=== PATIENT | male | born 1950 | race Caucasian/White ===

== ENCOUNTER 2020-11-15 08:18 | Outpatient (CLI) | payer MEDICARE, SELFPAY ==
[2020-11-15 08:31] LABS: Add Urine Microscopic? NO; Appearance Urine Clear (Clear); Basophils Absolute Auto 0.03 K/mm3 (0.00-0.10); Basophils Percent Auto 0.4 % (0.0-1.0); Bilirubin Urine Negative (Negative); Blood Urine Negative (Negative); Color Urine Yellow (Yellow); Glucose Urine UA Negative (Negative); Hematocrit 47.2 % (37.0-46.0); Hemoglobin 16.1 g/dL (12.4-15.3); Immature Granulocyte Absolute 0.03 K/mm3 (0.00-0.00); Immature Granulocyte Percent A 0.4 % (0.0-0.0); Ketones Urine Negative (Negative); Leukocyte Esterase Ur Negative LEU/UL (Negative); Lymphocytes Absolute Auto 2.54 K/mm3 (1.10-4.50); Lymphocytes Percent Auto 37.9 % (18.0-42.0); Mean Corpuscular HGB Conc 34.1 g/dL (32.0-36.0); Mean Corpuscular Hemoglobin 32.3 pg (27.0-31.0); Mean Corpuscular Volume 94.8 fL (78.0-102.0); Mean Platelet Volume 10.7 fl (8.7-11.0); Monocytes Absolute Auto 0.67 K/mm3 (0.10-0.90); Neutrophils Absolute Auto 3.2 K/mm3 (1.7-7.2); Neutrophils Percent Auto 48.3 % (50.0-70.0); Nitrate Urine Negative (Negative); Platelet Count Result 157 K/mm3 (150-420); Protein Urine Negative (Negative); Red Blood Count 4.98 M/mm3 (4.70-6.10); Red Cell Distribution Width 12.2 % (11.6-14.4); Specific Grav Ur 1.025 (1.010-1.020); Urobilinogen Urine 0.2 mg/dL (0.2-1.0); White Blood Count 6.7 K/mm3 (4.8-10.8)
[2020-11-15 09:49] LABS: Alanine Aminotransferase 30 U/L (16-63); Alkaline Phosphatase 73 U/L (46-116); Anion Gap 5 mmol/L (8-16); Aspartate Amino Transferase 19 U/L (15-37); Bilirubin,Total 0.7 mg/dL (0.00-1.00); Blood Urea Nitrogen 22 mg/dL (7-18); Calcium 9.2 mg/dL (8.5-10.1); Carbon Dioxide 33 mmol/L (21-32); Chloride 102 mmol/L (98-108); Cholesterol 208 mg/dL (0-200); Estimated Glomerular Filt Rate > 60; Glucose 86 mg/dL (70-99); HDL Direct 54 mg/dL (40-60); LDL Cholesterol Calculated 136 mg/dL (<130); Osmolality Calculated 292 mOsm/kg (285-295); Prostate Specific Antigen 2.4 ng/mL (< OR = 4.0); Sodium 140 mmol/L (136-145); Total Protein 7.2 g/dL (6.4-8.2); Triglycerides 88 mg/dL (0-150)
== END 2020-11-15 08:19 | disposition home or self-care (01) ==
LOC: CHSLAB 08:21
PROVIDERS: PCP Internal Medicine; Visit Provider Internal Medicine
DX: Z12.5 Encounter for screening for malignant neoplasm of prostate (principal); I10 Essential (primary) hypertension
CPT/HCPCS: 36415; 80053; 80061; 81003; 84153; 85025; G0103

== ENCOUNTER 2022-04-04 01:17 | Day surgery (SDC) | payer MEDICARE, SELFPAY ==
[2022-03-22 13:27] VITALS: BMI 27.1
[2022-04-04 09:12] VITALS: BP 141/80; PULSE 66; RESP 18; TEMP 36.2; O2SAT 99
[2022-04-04] MEDS: LACTATED RINGERS 1,000 ML 150 ML IV CONT (09:20)
--- NOTE | 2022-04-04 09:42 | WPDGICN ---
Assessment and Plan Assessment and plan (1) History of colon polyps: Code(s): Z86.010 - Personal history of colonic polyps Status: Acute Assessment and Plan: Patient has a history of colon polyps removed from the colon 2016. Plan is for surveillance colonoscopy at this time. Further recommendations will be given after endoscopy. GI Consult Note Consult date/time: 04/04/22 09:42 HPI: Abebe Trent is a 72 year old male Presents for screening colonoscopy. Patient reports his current weight appetite bowel movements are normal. His last colonoscopy 5 years ago revealed colon polyps. Patient presents today for follow-up examination. He reports his bowel habits are normal. He denies abdominal pain. He has had no bleeding. Family history is noncontributory. Review of Systems Review of Systems: Review of systems noncontributory. [facility] Past Medical History Medical History (Updated 04/04/22 @ 09:43 by Jeremie Lozano MD) Arthritis Cancer Surgical History Surgical History (Updated 11/02/21 @ 09:25 by Roberto Olvera MD) History of hip surgery Left [place] 2011 Family History Family History Other Diabetes mellitus Heart disease Social History Social History Smoking status: Current every day smoker Tobacco type: cigars Additional smoking assessment comments: 6 cigars a day Alcohol intake: current Drinks per week: 4 Substance use: never Substance use type: does not use Living arrangements: with family Gender identity (if verbalized by the patient): Male Spiritual care concerns: No Meds Home Medications and Allergies Home Medications Medication Instructions Recorded Confirmed Type atenolol 100 mg tablet 100 mg PO DAILY 11/02/21 04/04/22 History lisinopril 10 mg tablet 10 mg PO DAILY 11/02/21 04/04/22 History montelukast 10 mg tablet 10 mg PO DAILY 11/02/21 04/04/22 History Allergies Allergy/AdvReac Type Severity Reaction Status Date / Time No Known Allergies Allergy Verified 04/04/22 09:10 Vital Signs Vital Signs - 24 hr 04/04/22 09:12 Temperature 97.1 F L Pulse Rate 66 Respiratory Rate 18 Blood Pressure 141/80 H Pulse Oximetry 99 Oxygen Delivery Room Air Exam Narrative: Physical exam reveals patient to be alert. Vital signs stable. HEENT exam is unremarkable. Patient is anicteric. Lungs are clear to auscultation and percussion. Heart is without murmur or extra sounds. Abdomen bowel sounds are present soft nontender with no organomegaly. Digital external rectal exam is normal.
--- NOTE | 2022-04-04 09:55 | WPDANESEPPF ---
Anes - Initial Pre Proc Eval Procedure: Operation Date: 04/04/22 10:30 Proposed Procedures p Screening Colonoscopy - Jeremie Lozano MD Date/Time: 04/04/22 09:55 Surgeon: Jeremie Lozano MD Pre Op Diagnosis: hx of colon polyps Patient Data Age: 72 Gender: M Height: 1.83 m Weight: 111.1 kg Last Vital Signs Temp 36.2 C L 04/04/22 09:12 Pulse 66 04/04/22 09:12 Resp 18 04/04/22 09:12 BP 141/80 H 04/04/22 09:12 Pulse Ox 99 04/04/22 09:12 O2 Del Method Room Air 04/04/22 09:12 Allergies Allergy/AdvReac Type Severity Reaction Status Date / Time No Known Allergies Allergy Verified 04/04/22 09:10 Home Medications Medication Instructions Recorded Confirmed Type atenolol 100 mg tablet 100 mg PO DAILY 11/02/21 04/04/22 History lisinopril 10 mg tablet 10 mg PO DAILY 11/02/21 04/04/22 History montelukast 10 mg tablet 10 mg PO DAILY 11/02/21 04/04/22 History Patient hx anesthesia problems: none Family hx anesthesia problems: none Results Review: All pre-operative results and documents have been reviewed as part of the pre-operative evaluation. [facility] Past Medical History Medical History Arthritis Cancer Surgical History Surgical History History of hip surgery Left [place] 2011 Family History Family History Other Diabetes mellitus Heart disease Social History Social History Smoking status: Current every day smoker Tobacco type: cigars Additional smoking assessment comments: 6 cigars a day Alcohol intake: current Drinks per week: 4 Substance use: never Substance use type: does not use Living arrangements: with family Gender identity (if verbalized by the patient): Male Spiritual care concerns: No Anes - Eval Final PreProcedure Day of Procedure 04/04/22 09:55 Patient weight: obese Lungs: clear to auscultation Airway: Mallampati scale class II Neurological: alert and oriented Last oral intake: >/= 8 hours ASA classification: III Emergent: no Anesthetic plan: proceed Anesthesia type and monitoring: general GIVS and standard monitoring Results Review: All pre-operative results and documents have been reviewed as part of the pre-operative evaluation. Informed Consent: The patient's anesthetic plan and its attendant risks and benefits were discussed with the patient/family/POA. Questions were solicited and answers provided to the satisfaction of the patient/family/POA.
[2022-04-04 10:55] VITALS: BP 80/44; PULSE 58; RESP 16; O2SAT 93
[2022-04-04 11:05] VITALS: BP 89/50; PULSE 55; RESP 15; O2SAT 93
[2022-04-04 11:15] VITALS: BP 113/74; PULSE 55; RESP 16; O2SAT 94
== END 2022-04-04 11:22 | disposition home or self-care (01) ==
PROVIDERS: PCP Internal Medicine; Visit Provider Internal Medicine Gastroenterology
PROC: 0DJD8ZZ Inspection of Lower Intestinal Tract, Via Natural or Artificial Opening Endoscopic (ICD-10-PCS; CPT 45378; principal; 2022-04-04 10:30)
DX: Z12.11 Encounter for screening for malignant neoplasm of colon (principal); Z86.010 Personal history of colon polyps; K64.8 Other hemorrhoids; M19.90 Unspecified osteoarthritis, unspecified site; F17.290 Nicotine dependence, other tobacco product, uncomplicated; E66.9 Obesity, unspecified; Z68.33 Body mass index [BMI] 33.0-33.9, adult
CPT/HCPCS: G0105; J2704; J7120

== ENCOUNTER 2025-09-29 14:11 | Outpatient (CLI) | payer MEDICARE, SELFPAY ==
--- NOTE | ~2025-09-29 | XR_ITS ---
EXAMINATION: XR chest 2V, 09/29/2025 14:20 PODIATRY DOCTOR HISTORY: FU ATELCTASIS COMPARISON: No comparisons available. Technique: 2 views obtained. Findings: There is a small left basilar infiltrate and effusion with linear atelectasis. No pneumothorax. Heart is normal size. Mediastinal and hilar contours are within normal limits. Post sternotomy. Impression: Small left lower lobe probable pneumonia. Reviewed, dictated and finalized at location P. ATRY DOCTOR Impression: Small left lower lobe probable pneumonia.
== END 2025-09-29 14:12 | disposition home or self-care (01) ==
PROVIDERS: PCP Internal Medicine; Visit Provider Internal Medicine
DX: J98.11 Atelectasis (principal); R91.8 Other nonspecific abnormal finding of lung field
CPT/HCPCS: 71046

== ENCOUNTER 2025-10-02 13:42 | Outpatient (CLI) | payer MEDICARE, SELFPAY ==
--- NOTE | ~2025-10-02 | CT_ITS ---
EXAMINATION:CT diagnostic chest w con DATE: 10/02/2025 14:42 INDICATION: Pneumonia TECHNIQUE: Computed tomography (CT) of the chest was performed with intravenous contrast. The dose-length product (DLP) was 352.13 mGy-cm. COMPARISON: None. FINDINGS: Mild bibasilar atelectatic appearing changes, left greater than right. There are also some air bronchograms in the left lung base. A small left-sided pleural effusion is present. Mid and upper lung lange are clear. No pneumothorax or suspicious mass. Central and large airways are patent. Heart size normal. No significant pericardial effusion or bulky lymphadenopathy. Sternal retention wires which appear intact. Extensive coronary artery calcification and/or stenting noted. The bones appear intact. No acute process seen in the visualized portions of the upper abdomen or extrathoracic soft tissues. IMPRESSION: Bibasilar changes with more prominent findings in the left lung base where there are some air bronchograms which could represent early pneumonia and/or aspiration. A small effusion is also present. Reviewed, dictated and finalized at location A. RMATION CLERK CASHIER IMPRESSION: Bibasilar changes with more prominent findings in the left lung bas e where there are some air bronchograms which could represent early pneumonia a nd/or aspiration. A small effusion is also present.
--- OUTSIDE RECORDS SUMMARY | 2025-10-02 13:47 | XMS_ITS | Data Portability ---
Author Organization [facility] Address [address] [place] [address] Assessment Encounter Date Assessment Date Assessment LastModified by Organization Details LastModified Time 01/06/2025 01/06/2025 Labs completed on 12/08/2024 Glucose 100, BUN 27, Creatinine 1.04, Sodium 140, Potassium 4.0, Chloride 106, Co2 28.2, Calcium 9.3, Bilirubin 0.4, Proiten 7.5, Albumin 3.6, AST 21, ALT 31, Alkphos 95, eGFR 76, WBC 5.76, hgb 16.1, Platelets 152 ECG performed 12/08/2024 shows sinus rhythm rate 64 beats per minute, incomplete right bundle-branch block otherwise no other significant abnormalities. ECG performed on 01/06/2025 shows sinus rhythm with a rate of 66 beats per minute, incomplete right bundle-branch block. ASSESSMENT Chest pressure he had normal troponins however he had a significant delta started out at 18 and it went up to 73, 2 hours later Incomplete right bundle-branch block Essential hypertension, controlled Allergic rhinitis on montelukast PLAN: In light of his chest pressure symptoms, even though he had a normal troponin I he had a significant delta with his troponin I increasing by 400% 2 hours after his initial troponin so I would recommend we do a cardiac CTA on him and if there is significant disease then we will proceed with cardiac catheterization. Also, I will do a 2D echo Doppler to evaluate LV and valvular function and we will do with agitated saline contrast in light of his incomplete right bundle-branch block to rule out a PFO or ASD.. I asked him in the meantime to quit doing strenuous activity such as his swimming. I would like him to stay on aspirin 81 mg daily and atenolol/chlorth alidone 100/25 mg daily. I will give him sublingual nitroglycerin that he can take on a p.r.n. basis if he were to have chest pain or pressure but I told him if he use it he needs to call 911 and go to the ER. I will get a fasting lipid profile on him. I would like him to return in about 3 weeks' time for re-evaluation. Asked him to return sooner if he has any cardiac issues or problems. I told him to go to the ER if he has recurrence of the chest pressure.. [email or web address] Not available 01/06/2025 10:51:38 Plan of Treatment Reminders Order Date Submit Date Provider Last Modified By Organization Details Last Modified Time Details Appointments None recorde d. Lab lipid panel, serum 2024 [facility] (Lab), [address] [place], [address], 07:34:12 Referral None recorde d. Procedures fractio nal flow reserve (ffr) (PROC) 2024 [facility], [address] [facility], [facility], [place], [address], 07:22:28 Surgeries None recorde d. Imaging electro cardiog giuseppe 2024 [facility] In-Office Order, Internal Use Only DO Not Attach Compendium DO Not Attach Compendium, Do Not Delete/merge, [address] 12:02:47 CT, angiogr am, coronar y arterie s with fractio nal flow reserve 2024 [facility] Radiology Scheduling, [address] [place], [address], 5 07:26:45 US, echocar diogram , transth oracic, bubble study 2024 [facility] Outpatient Services, [address] [facility], [facility] [address], [address], 07:45:09 Medication Orders nitrogl ycerin 0.4 mg subling ual tablet 2024 025 [id number], [address] [facility], [place], [place], [id number], 10:51:52 Patient TargetsNo targets recorded. Patient InstructionsNo instructions recorded. Reason for Referral None Reported. Results Created Date Observation Date Name Description Value Unit Range Abnormal Flag Note LastModifiedBy Organization Detail LastModifiedTime 12/08/1912/08/2024 Compr ehens pham metab olic 1999 panel - Serum or Plasm a glucose [mass/volume ] in serum or plasma 100 text: 70 - 99 mg/dL high GLUCO SE 100 (H) 70 - 99 MG/DL 12/08 7:33 PM CHIEF TECHNOLOGIST [facility] Not Available Not Available 01/06/2025 10:06:57 12/08/19 25 12/08/2024 Compr ehens pham metab olic 1999 panel - Serum or Plasm a urea nitrogen [mass/volume ] in serum or plasma 27 text: 7 - 18 mg/dL high BUN 27 (H) 7 - 18 MG/DL 12/08 7:[address] [facility] Not Available Not Available 01/06/2025 10:06:57 12/08/1912/08/2024 Compr ehens pham metab olic 2000 panel - Serum or Plasm a creatinine [mass/volume ] in serum or plasma 1.04 text: 0.7 - 1.3 mg/dL CREAT ININE S/P/B 1.04 0.7 - 1.3 MG/DL 12/08 7:[address] [facility] Not Available Not Available 01/06/2025 10:06:57 12/08/19 25 12/08/2024 Compr ehens pham metab olic 2000 panel - Serum or Plasm a sodium [moles/volum e] in serum or plasma 140 text: 136 - 145 mmol/L SODHardikU M S/P/B 140 136 - 145 MMOL/ L 12/08 7:33 PM [facility] Not Available Not Available 01/06/2025 10:06:57 12/08/19 25 12/08/2024 Compr ehens pham metab olic 2000 panel - Serum or Plasm a potassium [moles/volum e] in serum or plasma 4 text: 3.5 - 5.1 mmol/L POTAS SIUM S/P/B 4.0 3.5 - 5.1 MMOL/ L 12/08 7:33 PM [facility] Not Available Not Available 01/06/2025 10:06:57 12/08/1912/08/2024 Compr ehens pham metab olic 2000 panel - Serum or Plasm a chloride [moles/volum e] in serum or plasma 106 text: 97 - 115 mmol/L CHLOR XI S/P/B 106 97 - 115 MMOL/ L 12/08 7:33 PM [facility] Not Available Not Available 01/06/2025 10:06:57 12/08/1912/08/2024 Compr ehens pham metab olic 2000 panel - Serum or Plasm a carbon dioxide, total [moles/volum e] in serum or plasma 28.2 text: 21 - 32 mmol/L CO2 28.2 21 - 32 MMOL/ L 12/08 7:33 PM [facility] Not Available Not Available 01/06/2025 10:06:57 12/08/1912/08/2024 Compr ehens pham metab olic 2000 panel - Serum or Plasm a calcium [mass/volume ] in serum or plasma 9.3 text: 8.5 - 10.1 mg/dL CALCI UM S/P/B 9.3 8.5 - 10.1 MG/DL 12/08 7:33 PM [facility] Not Available Not Available 01/06/2025 10:06:57 12/08/19 25 12/08/2024 Compr ehens pham metab olic 1999 panel - Serum or Plasm a bilirubin.to raghu [mass/volume ] in serum or plasma 0.4 text: 0.2 - 1.2 mg/dL BILIR UBIN TOTAL S/P/B 0.4 0.2 - 1.2 MG/DL 12/08 7:[address] [facility] Not Available Not Available 01/06/2025 10:06:57 12/08/19 25 12/08/2024 Compr ens pham metab olic 1999 panel - Serum or Plasm a protein [mass/volume ] in serum or plasma 7.5 text: 6.4 - 8.2 g/dL TOTAL PROTE IN S/P/B 7.5 6.4 - 8.2 G/DL 12/08 7:[address] [facility] Not Available Not Available 01/06/2025 10:06:57 12/08/1912/08/2024 Compr ens pham metab olic 1999 panel - Serum or Plasm a albumin [mass/volume ] in serum or plasma 3.6 text: 3.4 - 5.0 g/dL ALBUM IN S/P/B 3.6 3.4 - 5.0 G/DL 12/08 7:[address] [facility] Not Available Not Available 01/06/2025 10:06:57 12/08/19 25 12/08/2024 Compr ehens pham metab olic 1999 panel - Serum or Plasm a aspartate aminotransfe rase [enzymatic activity/vol ume] in serum or plasma 21 U/L low: 15U/Lh igh: 37U/L AST 21 15 - 37 U/L 12/08 7:[address] [facility] Not Available Not Available 01/06/2025 10:06:57 12/08/19 25 12/08/2024 Compr ehens pham metab olic 2000 panel - Serum or Plasm a alanine aminotransfe rase [enzymatic activity/vol ume] in serum or plasma 31 U/L low: 16U/Lh igh: 60U/L ALT 31 16 - 60 U/L 12/08 7:33 PM [facility] Not Available Not Available 01/06/2025 10:06:57 12/08/19 25 12/08/2024 Compr ehens pham metab olic 2000 panel - Serum or Plasm a alkaline phosphatase [enzymatic activity/vol ume] in serum or plasma 95 U/L low: 50U/Lh igh: 136U/L ALKAL INE PHOSP HATAS E S/P/B 95 50 - 136 U/L 12/08 7:33 PM [facility] Not Available Not Available 01/06/2025 10:06:57 12/08/1912/08/2024 Compr ehens pham metab olic 2000 panel - Serum or Plasm a anion gap in serum or plasma 5.8 text: 2 - 10 mmol/L ANION GAP 5.8 2 - 10 MMOL/ L 12/08 7:33 PM [facility] Not Available Not Available 01/06/2025 10:06:57 12/08/19 25 12/08/2024 Compr ehens pham metab olic 2000 panel - Serum or Plasm a urea nitrogen/cre atinine [mass ratio] in serum or plasma 26 low: 6high: 26 BUN CREAT ININE RATIO 26.0 6 - 26 12/08 7:33 PM [facility] Not Available Not Available 01/06/2025 10:06:57 12/08/19 25 12/08/2024 Compr ehens pham metab olic 2000 panel - Serum or Plasm a albumin/glob ulin [mass ratio] in serum or plasma 0.9 text: 1.0 - 2.0 ratio low A/G RATIO 0.9 (L) 1.0 - 2.0 RATIO 12/08 7:33 PM [facility] Not Available Not Available 01/06/2025 10:06:57 12/08/19 25 12/08/2024 Compr ehens pham metab olic 2000 panel - Serum or Plasm a glomerular filtration rate/1.73 sq M.predicted [volume rate/area] in serum, plasma or blood by creatinine-b ased formula (CKD-epi 2020) 76 text: >90 mL/min /1.73 M2 low GFR ESTIM ATE 76 (L) >90 ML/CA N/1.7 3 M2 12/08 7:33 PM [facility] Not Available Not Available 01/06/2025 10:06:57 12/08/1912/08/2024 Emerson walsh pham metab carol 1999 panel - Serum or Plasm a interpretati on and review of laboratory results Abnorm al Not Available Not Available 10:06:57 12/08/1912/08/2024 CBC W Auto Diffe renti al panel - Blood leukocytes [#/volume] in blood by automated count 5.76 text: 4.5 - 11.0 x10'3/ uL WBC 5.76 4.5 - 11.0 x10'3 /uL 12/08 7:15 PM CHIEF TECHNOLOGIST [facility] Not Available Not Available 01/06/2025 10:06:57 12/08/1912/08/2024 CBC W Auto Diffe renti al panel - Blood erythrocytes [#/volume] in blood by automated count 4.96 text: 4.70 - 6.10 x10'6/ uL RBC 4.96 4.70 - 6.10 x10'6 /uL 12/08 7:15 PM [facility] Not Available Not Available 01/06/2025 10:06:57 12/08/19 25 12/08/2024 CBC W Auto Diffe renti al panel - Blood hemoglobin [mass/volume ] in blood 16.1 text: 14.0 - 18.0 g/dL HGB 16.1 14.0 - 18.0 G/DL 12/08 7:[address] [facility] Not Available Not Available 01/06/2025 10:06:57 12/08/19 25 12/08/2024 CBC W Auto Diffe renti al panel - Blood hematocrit [volume fraction] of blood 47.2 % low: 43%hig h: 54% HCT 47.2 43.0 - 54.0 % 12/08 7:15 PM CHIEF TECHNOLOGIST [facility] Not Available Not Available 01/06/2025 10:06:57 12/08/1912/08/2024 CBC W Auto Diffe renti al panel - Blood MCV [entitic volume] 95.2 text: 80.0 - 94.0 fL high MCV 95.2 (H) 80.0 - 94.0 FL 12/08 7:15 PM [facility] Not Available Not Available 01/06/2025 10:06:57 12/08/19 25 12/08/2024 CBC W Auto Diffe renti al panel - Blood MCH [entitic mass] 32.5 pg low: 27pghi gh: 31pg high MCH 32.5 (H) 27.0 - 31.0 PG 12/08 7:15 PM CHIEF TECHNOLOGIST [facility] Not Available Not Available 01/06/2025 10:06:57 12/08/19 25 12/08/2024 CBC W Auto Diffe toyin al panel - Blood MCHC [mass/volume ] 34.1 text: 32.0 - 36.0 g/dL MCHC 34.1 32.0 - 36.0 G/DL 12/08 7:15 PM CHIEF TECHNOLOGIST [facility] Not Available Not Available 01/06/2025 10:06:57 12/08/19 25 12/08/2024 CBC W Auto Diffe renti al panel - Blood erythrocyte distribution width [entitic volume] by automated count 12.4 % low: 11.5%h igh: 14.5% RDW 12.4 11.5 - 14.5 % 12/08 7:15 PM CHIEF TECHNOLOGIST [facility] Not Available Not Available 01/06/2025 10:06:57 12/08/19 25 12/08/2024 CBC W Auto Diffe renti al panel - Blood platelets [#/volume] in blood 152 text: 130 - 400 x10'3/ uL PLT 152 130 - 400 x10'3 /uL 12/08 7:15 PM [facility] Not Available Not Available 01/06/2025 10:06:57 12/08/19 25 12/08/2024 CBC W Auto Diffe renti al panel - Blood platelet mean volume [entitic volume] in blood 10.8 text: 9.3 - 12.2 fL MPV 10.8 9.3 - 12.2 FL 12/08 7:15 PM [facility] Not Available Not Available 01/06/2025 10:06:57 12/08/19 25 12/08/2024 CBC W Auto Diffe renti al panel - Blood differential cell count method - blood AUTOMA ALEJANDRA DIFFER ENTIAL DIFFE RENTI AL TYPE AUTOM ATED DIFFE TOYIN AL 12/08 7:15 PM [facility] Not Available Not Available 01/06/2025 10:06:57 12/08/19 25 12/08/2024 CBC W Auto Diffe renti al panel - Blood neutrophils/ 100 leukocytes in blood by automated count 60.2 % NEUTR OPHIL S % 60.2 % 12/08 7:15 PM [facility] Not Available Not Available 01/06/2025 10:06:57 12/08/19 25 12/08/2024 CBC W Auto Diffe renti al panel - Blood lymphocytes/ 100 leukocytes in blood by automated count 27.8 % LYMPH OCYTE S % 27.8 % 12/08 7:15 PM [facility] Not Available Not Available 01/06/2025 10:06:57 12/08/19 25 12/08/2024 CBC W Auto Diffe renti al panel - Blood monocytes/10 0 leukocytes in blood by automated count 8.9 % MONOC YTES % 8.9 % 12/08 7:15 PM [facility] Not Available Not Available 01/06/2025 10:06:57 12/08/19 25 12/08/2024 CBC W Auto Diffe renti al panel - Blood eosinophils/ 100 leukocytes in blood by automated count 1.7 % EOSIN OPHIL S 1.7 % 12/08 7:15 PM CHIEF TECHNOLOGIST [facility] Not Available Not Available 01/06/2025 10:06:57 12/08/19 25 12/08/2024 CBC W Auto Diffe renti al panel - Blood basophils/10 0 leukocytes in blood by automated count 0.7 % BASOP HILS 0.7 % 12/08 7:15 PM CHIEF TECHNOLOGIST [facility] Not Available Not Available 01/06/2025 10:06:57 12/08/19 25 12/08/2024 CBC W Auto Diffe renti al panel - Blood immature granulocytes /100 leukocytes in blood by automated count 0.7 % IMMAT URE GRANS % 0.7 % 12/08 7:15 PM CHIEF TECHNOLOGIST [facility] Not Available Not Available 01/06/2025 10:06:57 12/08/19 25 12/08/2024 CBC W Auto Diffe renti al panel - Blood neutrophils [#/volume] in blood 3.47 text: 1.80 - 7.70 x10'3/ uL ABS. NEUTR OPHIL S 3.47 1.80 - 7.70 x10'3 /uL 12/08 7:15 PM CHIEF TECHNOLOGIST [facility] Not Available Not Available 01/06/2025 10:06:57 12/08/19 25 12/08/2024 CBC W Auto Diffe renti al panel - Blood lymphocytes [#/volume] in blood 1.6 text: 1.00 - 4.80 x10'3/ uL ABS. LYMPH OCYTE S 1.60 1.00 - 4.80 x10'3 /uL 12/08 7:15 PM CHIEF TECHNOLOGIST [facility] Not Available Not Available 01/06/2025 10:06:57 01/12/08/2024 CBC W Auto Diffe renti al panel - Blood monocytes [#/volume] in blood 0.51 text: 0.30 - 0.82 x10'3/ uL ABS. MONOC YTES 0.51 0.30 - 0.82 x10'3 /uL 12/08 7:15 PM CHIEF TECHNOLOGIST [facility] Not Available Not Available 01/06/2025 10:06:57 12/08/1912/08/2024 CBC W Auto Diffe renti al panel - Blood eosinophils [#/volume] in blood 0.1 text: 0.04 - 0.54 x10'3/ uL ABS. EOSIN OPHIL S 0.10 0.04 - 0.54 x10'3 /uL 12/08 7:15 PM CHIEF TECHNOLOGIST [facility] Not Available Not Available 01/06/2025 10:06:57 12/08/1912/08/2024 CBC W Auto Diffe renti al panel - Blood basophils [#/volume] in blood 0.04 text: 0.01 - 0.08 x10'3/ uL ABS. BASOP HILS 0.04 0.01 - 0.08 x10'3 /uL 12/08 7:15 PM CHIEF TECHNOLOGIST [facility] Not Available Not Available 01/06/2025 10:06:57 12/08/1912/08/2024 CBC W Auto Diffe renti al panel - Blood immature granulocytes [#/volume] in blood 0.04 text: 0.00 - 0.49 x10'3/ uL ABS. IMMAT URE GRANU LOCYT ES 0.04 0.00 - 0.49 x10'3 /uL 12/08 7:15 PM CHIEF TECHNOLOGIST [facility] Not Available Not Available 01/06/2025 10:06:57 12/08/1912/08/2024 CBC W Auto Diffe renti al panel - Blood interpretati on and review of laboratory results Abnorm al Not Available Not Available 10:06:57 01/06/2001/06/2025 byron boyer am No observ ation record ed. BRITTNI In-Office Order Internal Use Only DO Not Attach Compendium DO Not Attach Compendium, Do Not Delete/merge, [id number] 01/06/2025 11:05:48 01/06/20 byron boyer am No observ ation record ed. [email or web address] Not Available 01/06 11:05:49 Result Notes None recorded. Problems Name Problem SNOMED Code Status Onset Date Resolution Date Notes Provider Name and Address Organization Details Recorded Time Hyperlipidemia screening Active 2024 Tamara Carpenter MD Attn: Radhaalexandria rodarte,[address] [facility], [place], [address], [facility] 5 10:48:18 Incomplete right bundle branch block 736509503 Active 2024 Tamara Carpenter MD Attn: Lucio rodarte,[address] [facility], [place], [address], [facility] 5 10:49:01 Essential hypertension 44366642 Active 2024 Tamara Carpenter MD Attn: Lucio rodarte,[address] [facility], [place], [address], [facility] 5 10:49:02 Chest pain 94882118 Active 2024 Tamara Carpenter MD Attn: Radhaalexandria rodarte,[address] [facility], [place], [address], [facility] 5 10:49:04 Problem Notes None recorded. Medical Equipment None Reported. Medications Name Sig Start Date Stop Date Status Note LastModified by Organization Details LastModified Time amoxicillin 500 mg capsule TK FOUR CS PO 1 HOUR B DAPP active Not Available Not Available No t Available furosemide 40 mg tablet TAKE 1 TABLET BY MOUTH DAILY active Not Available Not Available No t Available atorvastatin 40 mg tablet TAKE 1 TABLET BY MOUTH EVERY NIGHT AT BEDTIME active Not Available Not Available No t Available atenolol 100 mg-chlorthalido ne 25 mg tablet TAKE 1 TABLET BY MOUTH DAILY active Not Available Not Available No t Available amiodarone 200 mg tablet TAKE 1 TABLET BY MOUTH TWICE DAILY active Not Available Not Available No t Available metoprolol succinate ER 50 mg tablet,extended release 24 hr TAKE 1 TABLET BY MOUTH DAILY active Not Available Not Available No t Available cephalexin 500 mg capsule TAKE 1 CAPSULE BY MOUTH THREE TIMES DAILY FOR 17 DOSES. active Not Available Not Available No t Available lisinopril 10 mg tablet TAKE 1 TABLET BY MOUTH AT BEDTIME active Not Available Not Available No t Available nitroglycerin 0.4 mg sublingual tablet TAKE 1 TABLET BY MOUTH EVERY 5 MINUTES FOR UP TO 3 DOSES NEEDED FOR CHEST FOR PAIN THEN CALL 911. active Not Available Not Available No t Available montelukast 10 mg tablet TAKE 1 TABLET BY MOUTH DAILY active Not Available Not Available No t Available Adult Low Dose Aspirin 81 mg tablet,delayed release Take 1 tablet every day by oral route. active Not Available Not Available No t Available Glucosamine 1tablet daily active Not Available Not Available No t Available FeroSul 325 mg (65 mg iron) tablet TAKE 1 TABLET BY MOUTH TWICE DAILY WITH MEALS active Not Available Not Available No t Available potassium chloride ER 20 mEq tablet,extended release TAKE 2 TABLETS BY MOUTH DAILY active Not Available Not Available No t Available Vitals Date Recorded Body weight Body mass index (BMI) Body height Heart rate Oxygen saturation Systolic And Diastolic Provider Name and Address Organization Details Last Updated DateTime 385456. 37 g 33.9 kg/m2 182.88 cm 70 /min 97 % 132/70 mm[Hg] Angela Harp MA [facility] 10:17:44 Social History Question Answer Notes LastModified by Organizat ion Details LastModified Time Tobacco Smoking Status Current Every Day Smoker cigar Angela Harp MA null, [facility] 01/06/2025 10:15:22 What Was The Date Of Your Most Recent Tobacco Screening? 01/06/2025 Information not available 01/06/2025 What Is Your Current Pack Years? 10packyears Information not available 01/06/2025 How Much Tobacco Do You Smoke? No Information not available 01/06/2025 Has Tobacco Cessation Counseling Been Provided? Yes Information not available 01/06/2025 On What Date Was Tobacco Cessation Counseling Provided? 01/06/2025 Information not available 01/06/2025 Sex: Unknown Functional Status None recorded. Mental Status None recorded. Family History Nothing Reported. Medical History No medical history recorded. Past Encounters Encounter ID Performer Location Encounter Start Date Encounter Closed Date Diagnosis/Indication Diagnosis SNOMED-CT Code Diagnosis ICD10 Code Diagnosis IMO Codes Diagnosis Note [id number] Tamara Carpenter MD [facility] [place] [facility] [address] [facility] [address] [place] [address] 01/06/2025 10:03:42 01/07/2025 12:02:46 Chest pain 24609815 R07.9 Incomplete right bundle branch block 323471455 I45.19 Essential hypertension 23611657 I10 Hyperlipid emia screening 754606560 Z13.220 Health Concerns Section Related Observation LastModified by Organization Detai ls LastModified Time None Recorded Concern Status LastModified by Organization Details LastModified Time None Recorded Advance Directives Directive None Recorded Payers Insurance Date Sequence Insurance Name Policy Number Policy Grey Covered Member ID Grey Member ID Guarantor Name 02/27/2025 2 [employer] (MEDICARE SUPPLEMENT) Abebe Trent [id number] Abebe Trent 01/06/2025 2 [employer] (MEDICARE SUPPLEMENT) Abebe Trent [id number] Abebe Trent 01/07/2025 1 [place] [facility] Abebe Trent [id number] Abebe Trent 01/07/2025 [place] Abebe Trent [id number] Abebe Trent 01/06/2025 1 [place] Abebe Trent [id number] Abebe Trent Notes Date Note Type Note Provider Name and Address Organization Details Recorded Time 01/06/2025 text/html Mr. Trent is a 74-year-old male who has a known history of hypertension who was referred for cardiac evaluation and treatment of complaints of chest pain. He was seen in [facility] ER for chest pressure which started when getting out of his car to walk into the [facility] to go swim and went swimming and it persisted which lasted about 90 minutes without any shortness of breath. He has noticed occasional chest pressure it in the past when he is walking in cold weather but usually goes away if continues. He has not noticed it previously and typically swims [facility] for about 45 minutes doing swims laps and walks and does it 3-4 times a week and is fairly active without any chest pain or pressure. He had a chest x-ray which showed normal cardiac silhouette and a normal chest x-ray. His EKG in the emergency department showed sinus rhythm with a rate of 64 beats per minute, an RSR prime pattern otherwise no other significant abnormalities. His troponins were negative x2 initial troponin I was 18 at 7:04 a.m. p.m. to 73 at 8:55 p.m.. He denies any shortness of breath, dizziness, syncope, orthopnea, paroxysmal nocturnal dyspnea, palpitations or lower extremity edema. Tamara Carpenter MD Attn: Accounting,[address] [place], [address], [facility] 01/06/2025 10:52:49
--- OUTSIDE RECORDS SUMMARY | 2025-10-02 13:47 | XMS_ITS | Clinical Summary ---
Author Organization [facility] Address [facility] [place] [address] Care Team Providers Care Manual Qa Tester Name Role Phone Carlos Alberto Kirk MD Primary Care Provider [phone] Allergies No known active allergies Medications aspirin EC (ECOTRIN) 81 MG tabletIndicati ons:Prophylaxi s of Deep Vein Thrombosis in Thoracic Surgery Take 1 tablet every day by oral route. Active montelukast (SINGULAIR) 10 MG tabletIndicati ons:Allergy Take 1 tablet (10 mg total) by mouth daily. Indications: Allergy Active nitroglycerin (NITROSTAT) 0.4 MG SL tabletIndicati ons:Angina Pectoris One tablet sublingually q.5 minutes x3 p.r.n. chest pain 01/06/20 25 Active glucosamine-ch ondroitin 500-400 MG Cap Take 1 capsule by mouth daily. Active metoprolol succinate ER (TOPROL-XL) 25 MG 24 hr tabletIndicati ons:S/P CABG x 4 Take 1 tablet (25 mg total) by mouth daily. 90 tablet 3 05/18/20 25 Active amoxicillin (AMOXIL) 500 MG capsule TAKE 4 CAPSULES (2,000MG) 1 HOUR PRIOR TO DENTAL PROCEDURES 12 capsule 1 05/26/20 25 Active furosemide (LASIX) 40 MG tabletIndicati ons:s/p CABG Take 1 tablet (40 mg total) by mouth daily as needed. Indications: s/p CABG 30 tablet 1 09/21/20 25 Active furosemide (LASIX) 40 MG tabletIndicati ons:s/p CABG Take 1 tablet (40 mg total) by mouth daily. Indications: s/p CABG 90 tablet 3 03/09/20 25 025 Discontinued potassium chloride CR (K-TAB) 20 MEQ tablet Take 1 tablet (20 mEq total) by mouth daily. 90 tablet 3 03/09/20 25 025 Discontinued atorvastatin (LIPITOR) 40 MG tabletIndicati ons:S/P CABG x 4 TAKE 1 TABLET BY MOUTH EVERY NIGHT AT BEDTIME 90 tablet 1 04/27/20 25 025 Discontinued Active Problems Problem Noted Date Diagnosed Date Chest pain 01/12/2025 Hyperglycemia 01/12/2025 Elevated d-dimer 01/12/2025 NSTEMI (non-ST elevated myocardial infarction) 0 01/12/2025 HTN (hypertension) Encounters Date Type Department Care Team Description 09/21/2025 11:00 AM GARMENT LOOPER Office Visit [address] [address] Nedra Weber NP Follow Up (6 months) 09/21/2025 10:55 AM GARMENT LOOPER Allied Health/Nurse Visit [address] [address] Gabriele Lucas MD Remote Device Check 09/21/2025 Travel 08/17/2025 10:55 AM CDT Allied Health/Nurse Visit [address] [address] Gabriele Lucas MD Remote Device Check 07/16/[address] [address] Ciarra Santamaria, RN Information 07/15/2025 7:11 AM CDT - 07/15/2025 9:20 AM CDT Hospital Encounter [facility] [place] [address] Discharge Disposition: Home or Self Care (Routine Discharge) 07/15/2025 Travel from Last 3 Months Immunizations Immunization Administration Dates Next Due Fluzone (IIV3, Trivalent, 0.5 ML Prefilled Syrin ge) 01/12/2025() Family History Medical History Relation Comments CHF Father Relation Status Comments Father Mother Social History Tobacco Use Types Packs/Day Years Used Date Smoking Tobacco: Former Cigars Q uit: 01/10/2025 Smokeless Tobacco: Never Tobacco Cessation:Counseling Given: Not Answered Alcohol Use Standard Drinks/Week Comments Yes 1 (1 standard drink = 0.6 oz pur e alcohol) No alcohol since November 2024 OASIS D0700: Social Isolation Answer Da te Recorded Frequency of experiencing loneliness or isolatio n Never 2025 OASIS A1250: Transportation Answer Date Recorded Lack of Transportation (Medical) No 2025 Lack of Transportation (Non-Medical) No 2025 Patient Unable or Declines to Respond No 2025 OASIS B1300: Health Literacy Answer Polo e Recorded Frequency of needing help to read materials from doctor or pharmacy Never 2025 B1300 Health Literacy Answer Date Recor ded How often do you need to hav e someone help you when you read instructions, pamphlets, or other written material from your doctor or pharmacy? Never 01/12/2025 [facility] Utilities Answer Date Recorded In the past 12 months has [facility]: online travellers club, oil, or water [employer] threatened to shut off services in your home? No 01/12/2025 Humiliation, Afraid, Rape, and Kick questionnair e Answer Date Recorded Within the last year, have y ou been afraid of your partner or ex-partner? No 01/12/2025 Within the last year, have y ou been humiliated or emotionally abused in other ways by your partner or ex-partner? No Within the last year, have y ou been kicked, hit, slapped, or otherwise physically hurt by your partner or ex-partner? No 01/12/2025 Within the last year, have y ou been raped or forced to have any kind of sexual activity by your partner or ex-partner? No 01/12/2025 Social Connection and Isolation Panel Answer Date Recorded In a typical week, how many times do you talk on the phone with family, friends, or neighbors? More than three times a week 01/12/2025 How often do you get togethe r with friends or relatives? More than three times a week 01/12/2025 How often do you attend chur ch or gnosticist services? Never 01/12/2025 Do you belong to any clubs o r organizations such as religion groups, unions, fraternal or athletic groups, or school groups? No 01/12/2025 How often do you attend meet ings of the clubs or organizations you belong to? Never 01/12/2025 Are you , , di vorced, , never , or living with a partner? Living with partner 01/12/2025 AUDIT-C Answer Date Recorded Q1: How often do you have a drink containing alc ohol? Never 01/12/2025 Average Number of Drinks Not on file 025 Frequency of Binge Drinking Not on file 01/2025 Overall Financial Resource Strain (CARDIA) Answe r Date Recorded How hard is it for you to pa y for the very basics like food, housing, medical care, and heating? Not hard at all 01/12/2025 PHQ-2 Answer Date Recorded Patient Health Questionnaire-2 Score 0 01/12/2025 [facility] [place] of Occupat ional Health - Occupational Stress Questionnaire Answer Date Recorded Do you feel stress - tense, restless, nervous, or anxious, or unable to sleep at night because your mind is troubled all the time - these days? Only a little 01/12/2025 Hunger Vital Sign Answer Date Recorded Within the past 12 months, y ou worried that your food would run out before you got the money to buy more. Never true 01/13/20 25 Within the past 12 months, t he food you bought just didn't last and you didn't have money to get more. Never true 01/12/2025 PRAPARE - Transportation Answer Date Re corded In the past 12 months, has l ack of transportation kept you from medical appointments or from getting medications? No 01/2025 In the past 12 months, has l ack of transportation kept you from meetings, work, or from getting things needed for daily living? No 01/12/2025 Housing Stability Vital Sign Answer Polo e Recorded In the last 12 months, was t here a time when you were not able to pay the mortgage or rent on time? No 01/12/2025 In the past 12 months, how m any times have you moved where you were living? 0 01/12/2025 At any time in the past 12 m [facility], were you homeless or living in a fdc (including now)? No 01/12/2025 AUDIT-C Answer Date Recorded Q1: How often do you have a drink containing alc ohol? 2-4 times a month 09/21/2025 Q2: How many drinks containi ng alcohol do you have on a typical day when you are drinking? 1 or 2 09/21/2025 Q3: How often do you have si x or more drinks on one occasion? Never 09/21/2025 Sex and Gender Information Value Date Recorded Sex Assigned at Male 12/08/2024 6:57 PM GARMENT LOOPER Legal Sex Male 8:01 PM CDT Gender Identity Male 12/08/2024 6:57 PM GARMENT LOOPER Sexual Orientation Not on file Last Filed Vital Signs Vital Sign Reading Time Taken Comments Blood Pressure 138/70 09/21/2025 10:49 AM GARMENT LOOPER Pulse 61 09/21/2025 10:49 AM GARMENT LOOPER Temperature 36.6 C (97.8 F) 07/15/2025 7:32 AM CDT Respiratory Rate 20 07/15/2025 9:00 AM CDT Oxygen Saturation 98% 09/21/2025 10:49 AM GARMENT LOOPER Inhaled Oxygen Concentration - - Weight 104.3 kg (230 lb) 09/21/2025 10:49 AM GARMENT LOOPER Height 180.3 cm (5' 11) 09/21/2025 10:49 AM GARMENT LOOPER Body Mass Index 32.08 09/21/2025 10:49 AM GARMENT LOOPER Plan of Treatment Upcoming Encounters Date Type Department Care Team (Late st Contact Info) Description 10/26/2025 10:55 AM GARMENT LOOPER Allied Health/Nurse Visit [facility], [facility] [address] [place], [place] [id number] Gabriele Lucas MD [facility]. [facility] [address] [place], [place] [id number] 03/23/2026 10:00 AM CDT Office Visit [facility], [place] [address] [place] [address] Gabriele Lucas MD [facility]. [place] [address] [place] [address] Health Maintenance Due Date Last Done Comments ASCVD Statin 1950 Colorectal Cancer Screening Colonoscopy (10 Years) 1950 Hepatitis C 1969 RSV Immunization or 60+ Years (1 - Risk 60-74 years 1-dose series) 2011 Zoster Vaccines (2 of 3) 01/28/2016 12/03/2015 AAA SCREENING 02/05/2016 Annual Medicare Wellness Visit 02/05/2016 Pneumococcal Vaccine: 50+ Years (2 of 2 - PPSV23, PCV20, or PCV21) 01/16/2020 11/21/2019 DTaP, Tdap and Td Vaccines (2 - Td or Tdap) 11/27/2024 11/27/2014 COVID-19 Vaccine ( season) 2025 02/19/2023, 11/14/2021, 01/25/2021, Additional history exists Influenza Adult (#1) 2025 12/04/2023, 10/18/2020, 08/26/2019, Additional history exists Hepatitis A Vaccines Aged Out No long er eligible based on patient's age to complete this topic Meningococcal B Vaccine Aged Out No l onger eligible based on patient's age to complete this topic Meningococcal Vaccine Aged Out No isatu marilin eligible based on patient's age to complete this topic RSV Immunizations Under 20 Months Aged Out No longer eligible based on patient's age to complete this topic Goals Goal Patient Goal Type Associated Problems Recent Progress Patient-Stated? Author Health - patient able to perform ADLs independently Lifestyle Radha Leon RN Medical Devices Implanted Type Area [employer] [place] Consultant Device Identifier Shelf Expiration Date Model / Serial / Lot Implantable Loop Recorder- [id number] Implanted:Qty: 1 on 07/15/2025 by Ventura Cano MD Implantable Loop Recorder [employer] 12/04/2026 LUX-DX II [id number] / [id number] / Wire Sternotomy Suture Kit - [id number] Implanted:Qty: 1 on 01/13/2025 by Montana Griffith RNFA at [facility] Wire N/A: Sternum [employer] 12/13/2027 [id number] / / [id number] Description:# WIRES IMPLANTE D. Wire Sterum Suture Kit Myowire #7 / Ccs-1 - [id number] Implanted:Qty: 1 on 01/13/2025 by Montana Griffith RNFA at [facility] Wire [employer] 05/12/2028 [id number] / / [id number] Description:# WIRES IMPLANTE D. Procedures Procedure Name Priority Date/Time Associated Diagnosis Comments XA LOOP RECORDER Routine 07/15/2025 8:34 AM CDT Bradycardia from Last 3 Months Results * XA LOOP RECORDER (07/15/2025 8:34 AM CDT) Anatomical Region Laterality Modality Cardiac Matchbook Maker Narrative 07/20/2025 10:10 PM CDT [facility] CARDIAC CATHETERIZATION/EP LAB [phone] x [id number] IMPLANTATION OF A LOOP RECORDER REPORT Patient Name: Abebe Trent Date of : 1950 Medical Record: #[id number] Account: #[id number] Physician: Ventura Cano MD Date: 07/15/2025 Procedure: #[id number] INDICATION: Bradycardia PROCEDURE: Patient was marked at the left 4th intercostal space. Lidocaine was infiltrated at the site. The punch tool was used to make a one cm incision. The device was inserted subcutaneously. The wound was closed with Dermabond solution and 3-0 Vicryl. Device was interrogated/programmed. [employer], LUX-Dx II+, REF: #M312, serial #[id number]. CONCLUSION: Successful implantation of implantable electronic device monitor. Ventura Cano MD MH/vs Interpreted: 07/15/25 Transcribed: 07/16/25 Gabriele Lucas MD RAIL CAR PAINTER/SANDBLASTER Final Result from Last 3 Months Insurance MEDICARE [facility] Advance Directives Documents on File Type Date Recorded Patient Outside Cutter Hand Expl anation Advance Directives and Livin g Will 01/23/2025 3:56 PM * Full Code (Latest Code Status on File) Date Activated Date Inactivated Comments 01/23/2025 10:00 AM 07/15/2025 7:11 AM * Full Code Date Activated Date Inactivated Comments 01/13/2025 3:21 PM 01/22/2025 2:59 PM * Full Code Date Activated Date Inactivated Comments 01/12/2025 12:38 PM 01/13/2025 3:21 PM * Full Code Date Activated Date Inactivated Comments 01/12/2025 7:35 AM 01/12/2025 12:38 PM Care Teams Manual Qa Tester Relationship Specialty Start Date End Date Carlos Alberto Kirk MD [address] [place] [phone] PCP - General INTERNAL MEDICINE 01/14/25
[2025-10-02 14:14] LABS: Estimated Glomerular Filt Rate > 60
== END 2025-10-02 13:43 | disposition home or self-care (01) ==
PROVIDERS: PCP Internal Medicine; Visit Provider Internal Medicine
DX: J18.9 Pneumonia, unspecified organism (principal); J90 Pleural effusion, not elsewhere classified; R91.8 Other nonspecific abnormal finding of lung field
CPT/HCPCS: 71260; Q9967